=== PATIENT | female | born 1980 | race Two or more races ===

== ENCOUNTER 2022-12-17 10:43 | Emergency (ER) | payer BC ==
[~2022-12-17] VITALS: Ht 170.2 cm; Wt 67.1 kg
== END 2022-12-17 16:29 | disposition home or self-care (01) ==
LOC: ER 10:43
DX: R53.81 Other malaise (principal); R10.9 Unspecified abdominal pain; F41.8 Other specified anxiety disorders; Z85.43 Personal history of malignant neoplasm of ovary